=== PATIENT | male | born 1975 | race Caucasian/White ===

== ENCOUNTER 2024-12-29 16:41 | Inpatient (IN) | payer OTHER ==
[~2024-12-29] VITALS: Ht 185.4 cm; Wt 97.0 kg
[~2024-12-29 16:41] MED LIST: ACET-2247 PO; RISP-31 PO
[2024-12-29 19:42] LABS: PLATELET COUNT (AUTO) 294 K/uL (150-450); RED BLOOD CELL COUNT(AUTO) 5.41 MIL/uL (4.50-5.90); RED CELL DISTRIBUTION WIDTH 13.7 % (11.5-14.5); WHITE BLOOD COUNT (AUTO) 5.4 K/uL (4.5-11.0)
[2024-12-29 19:52] LABS: CALCIUM, TOTAL 8.5 mg/dL (8.8-10.5); CREATININE 1.15 mg/dL (0.60-1.30); GLOMERULAR FILTR. RATE CALC > 60 mL/min (>60); GLUCOSE,RANDOM 168 mg/dL (70-110); SODIUM SERUM 139 mmol/L (136-145); UREA NITROGEN, BLOOD 14 mg/dL (7-18)
[2024-12-29 19:56] LABS: COVID AG,FIA SOURCE NPH
[2024-12-29 20:01] LABS: SARS-COV2 (COVID) ANTIGEN,FIA Negative (Negative)
[2024-12-29 20:01] LABS: ALCOHOL, BLOOD (SERUM) < 3 mg/dL (0-10)
[2024-12-29 20:04] LABS: ASPARTATE AMINOTRANSFERASE 28 U/L (15-37); TOTAL PROTEIN, SERUM 6.6 g/dL (6.4-8.2)
[2024-12-29] MEDS ORDERED: ACETAMINOPHEN 325 MG TABLET PO PRN (22:45)
[2024-12-29] MEDS ORDERED: IPRATROPIUM BROMIDE 0.5 MG/2.5 ML NEB SOLUTION NEB PRN (22:45)
[2024-12-29] MEDS ORDERED: ALBUTEROL SULFATE 2.5 MG/0.5 ML NEB SOLUTION NEB PRN (22:45)
[2024-12-29] MEDS ORDERED: ONDANSETRON HCL 4 MG/2 ML VIAL IVP PRN (22:45)
[2024-12-29] MEDS: HEPARIN SODIUM,PORCINE 5,000 UNITS/ML VIAL SQ SCH (23:46)
[2024-12-30 04:10] VITALS: BP 125/89; PULSE 77; RESP 18; TEMP 97.9; O2SAT 100
[2024-12-30 07:10] LABS: CALCIUM, TOTAL 8.5 mg/dL (8.8-10.5); CREATININE 1.16 mg/dL (0.60-1.30); GLOMERULAR FILTR. RATE CALC > 60 mL/min (>60); GLUCOSE,RANDOM 86 mg/dL (70-110); SODIUM SERUM 139 mmol/L (136-145); UREA NITROGEN, BLOOD 13 mg/dL (7-18)
[2024-12-30 07:11] LABS: PLATELET COUNT (AUTO) 286 K/uL (150-450); RED BLOOD CELL COUNT(AUTO) 5.49 MIL/uL (4.50-5.90); RED CELL DISTRIBUTION WIDTH 13.7 % (11.5-14.5); WHITE BLOOD COUNT (AUTO) 4.9 K/uL (4.5-11.0)
[2024-12-30 07:16] LABS: APPEARANCE,URINE CLEAR (CLEAR); GLUCOSE, URINE (UA) TRACE mg/dL (NEGATIVE); LEUKOCYTE ESTERASE ,URINE NEGATIVE (NEGATIVE); NITRATE,URINE NEGATIVE (NEGATIVE); OCCULT BLOOD,URINE NEGATIVE (NEGATIVE); PH,URINE DRUG SCREEN 5.5 (5.0-8.0); SPECIFIC GRAVITIY, URINE 1.034 (1.003-1.030)
[2024-12-30 07:59] LABS: ALCOHOL, URINE DRUG SCREEN NEGATIVE (NEGATIVE); AMPHET/METH SCREEN,URINE NEGATIVE (NEGATIVE); BARBITURATE SCREEN, URINE NEGATIVE (NEGATIVE); CANNABINOID SCREEN,URINE POSITIVE (NEGATIVE); COCAINE SCREEN,URINE NEGATIVE (NEGATIVE); METHADONE SCREEN, URINE NEGATIVE (NEGATIVE)
[2024-12-30 08:00] VITALS: BP 100/83; PULSE 70; RESP 20; TEMP 98.1; O2SAT 95
[2024-12-30] MEDS: DOCUSATE SODIUM 100 MG CAPSULE PO SCH (08:03)
[2024-12-30 19:30] VITALS: BP 109/81; PULSE 79; RESP 18; TEMP 97.7; O2SAT 96
[2024-12-31 06:40] VITALS: BP 122/76; PULSE 77; RESP 20; TEMP 97.7; O2SAT 95
[2024-12-31 08:40] VITALS: BP 121/86; PULSE 79; RESP 18; TEMP 97.5; O2SAT 96
[2024-12-31 20:00] VITALS: BP 133/90; PULSE 85; RESP 18; TEMP 97.3; O2SAT 95
[2025-01-01 04:00] VITALS: BP 115/85; PULSE 74; RESP 18; TEMP 97.9; O2SAT 96
[2025-01-01 08:29] VITALS: BP 114/84; PULSE 74; RESP 18; TEMP 98.2; O2SAT 95
[2025-01-01 20:09] VITALS: BP 118/69; PULSE 72; RESP 18; TEMP 98.1; O2SAT 95
[2025-01-01] MEDS: ESZOPICLONE 2 MG TABLET PO SCH (20:15)
[2025-01-02 05:33] VITALS: BP 110/83; PULSE 68; RESP 18; TEMP 98.1; O2SAT 99
[2025-01-02 07:47] VITALS: BP 116/77; PULSE 68; RESP 19; TEMP 97.5; O2SAT 100
[2025-01-02 20:00] VITALS: BP 116/80; PULSE 69; RESP 18; TEMP 98.1; O2SAT 96
[2025-01-03 04:00] VITALS: BP 118/71; PULSE 68; RESP 18; TEMP 97.7; O2SAT 96
[2025-01-03 08:06] VITALS: BP 109/75; PULSE 65; RESP 18; TEMP 98.8; O2SAT 98
[2025-01-03 20:17] VITALS: BP 117/71; PULSE 66; RESP 18; TEMP 97.9; O2SAT 94
[2025-01-04 04:17] VITALS: BP 115/83; PULSE 66; RESP 17; TEMP 97.9; O2SAT 96
[2025-01-04 07:57] VITALS: BP 116/79; PULSE 64; RESP 18; TEMP 97.9; O2SAT 95
[2025-01-04] MEDS ORDERED: ESZO2TAB46 PO (14:31)
[2025-01-04] MEDS ORDERED: RISP-32 PO (14:36)
[2025-01-04 19:20] VITALS: BP 127/76; PULSE 71; RESP 18; TEMP 97.9; O2SAT 96
[2025-01-05 04:35] VITALS: BP 111/74; PULSE 64; RESP 18; TEMP 98.1; O2SAT 96
[2025-01-05 08:50] VITALS: BP 130/78; PULSE 60; RESP 18; TEMP 98.4; O2SAT 98
== END 2025-01-05 20:40 | DRG 885 ==
LOC: EMS 16:44 → EDH 22:36 → 6N 12-30 03:46
PROVIDERS: ADMIT Internal Medicine; ATTEND Internal Medicine
DX: F29 Unspecified psychosis not due to a substance or known physiological condition (principal); F25.9 Schizoaffective disorder, unspecified; I10 Essential (primary) hypertension; F12.10 Cannabis abuse, uncomplicated; Z20.822 Contact with and (suspected) exposure to COVID-19; F41.9 Anxiety disorder, unspecified; G47.00 Insomnia, unspecified; Z79.899 Other long term (current) drug therapy
CPT/HCPCS: 80048; 80053; 80307; 81001; 83735; 84443; 85025; 99285; G0378; G0480; J1644